=== PATIENT | male | born 1970 | race Caucasian/White ===

== ENCOUNTER 2016-10-25 15:12 | Inpatient (IN) ==
[2016-10-25] MEDS ORDERED: ALUM/MAG/SIMETH/LIDO VISC 1:1 30 ML BOTTLE PO STA (15:36)
[2016-10-25] MEDS ORDERED: ASPIRIN 325 MG TABLET PO STA (15:36)
[2016-10-25] MEDS ORDERED: ALUM/MAG/SIMETH/LIDO VISC 1:1 30 ML BOTTLE PO ONE (15:39)
[2016-10-25] MEDS ORDERED: ASPIRIN 325 MG TABLET ONE (15:39)
[2016-10-25] MEDS ORDERED: ONDANSETRON 4 MG/2 ML VIAL ONE (15:53)
[2016-10-25] MEDS ORDERED: ONDANSETRON 4 MG/2 ML VIAL IV STA (15:58)
[2016-10-25] MEDS ORDERED: PANTOPRAZOLE 40 MG VIAL IV STA (16:01)
[2016-10-25] MEDS ORDERED: PANTOPRAZOLE 40 MG VIAL IV ONE (16:02)
[2016-10-25 16:05] LABS: Basophils % 0.3 % (0.0-0.8); Eosinophils % 0.2 % (0.00-10.9); Hematocrit 45.6 VOL% (42.0-52.0); Hemoglobin 15.7 GM/DL (14.0-18.0); Immature Granulocytes % 0.3 %; Immature Granulocytes Absolute 0.02 #; Lymphocytes # 1.9 10*3/uL (1.4-4.0); Lymphocytes % 29.1 % (21.2-54.2); Mean Corpuscular HGB Conc 34.4 GM/DL (32-36); Mean Corpuscular Hemoglobin 29 PG (27-34); Mean Corpuscular Volume 85.1 FL (87-102); Mean Platelet Volume 10.3 FL (9.6-12.0); Monocytes # 0.5 10*3/uL (0.11-0.8); Monocytes % 7.8 % (1.7-12.7); Neutrophils # 4.2 10*3/uL (1.4-7.4); Neutrophils % 62.3 % (38.7-73.9); Platelet Count 208 T/CUMM (130-400); Red Blood Count 5.36 MC/CUMM (3.8-5.5); Red Cell Distribution Width 12.5 % (9.3-17.3); White Blood Count 6.7 T/CUMM (4-12)
--- NOTE | 2016-10-25 16:11 | XRay Report ---
XR chest 2V Date: 10/25/2016 3:36 PM History: Chest pain Comparison: None Technique: PA and lateral chest Findings: The heart is normal in size. The lungs are clear. Unremarkable mediastinum and osseous structures. Impression: No acute cardiopulmonary pathology identified. PROCEDURE INTERPRETED AT [facility] DEPARTMENT OF RADIOLOGY Final Report Signed by: Dr. Daphnie Sigala
[2016-10-25 16:37] LABS: Albumin 4.9 G/DL (3.4-5.0); Bilirubin,Total 0.8 MG/DL (0.2-1.0); Calcium 9.6 MG/DL (8.5-10.1); Magnesium 2.2 MG/DL (1.8-2.4); Potassium 3.9 MMOL/L (3.5-5.1); Total Protein 7.6 G/DL (6.4-8.3)
--- NOTE | 2016-10-25 16:43 | Emergency Department Note ---
Ace Berman Brittany, am scribing for, and in the presence of, Kamari Wood MD 16:34. Nina Berman Charles R, MD, personally performed the services described in this documentation, ascribed by Sandra Bello in my presence, and it is both accurate and complete [id number] . Arrival - Arrival Chief Complaint: Chest Pain Stated Complaint: chest pain ED Nursing Triage Note: CP OFF AND ON FOR PAST WEEK, BURNING TYPE PAIN, -SOB,+ NAUSEA,-DIAPHORESIS. SEEN AT DR FUNG OFFICE AND SENT TO ER DUE TO ABNORMAL EKG Mode of Arrival: Ambulatory Limitations: No Limitations Source: Patient, Family Time Seen by Provider: 10/25/16 16:25 - History of Present Illness HPI Narrative: This is a 45 y/o white male,who presents to the ED with c/o upper gastric/lower chest pain which started 1 week ago. He states the pain is more of a burning type of pain. He states he has tried OCT meds which have not helped. He reports he burps a lot. He reports the pain is worse after eating meals. He denies any SOB. He denies a cholecystectomy or being scoped. Pt has no other complaints/ pain in the ED at this time. Pt has a PMHx of GERD. Pt denies a surgical Hx. Pt has a family medical Hx of heart disease. Pt denies a social Hx. Onset (ago): week(s) (Started 1 week ago) Consistency: constant Severity: moderate Allergies/Adverse Reactions: Allergies Allergy/AdvReac Type Severity Reaction Status Date / Time No Known Allergies Allergy Unverified 10/25/16 15:13 Home Medications: Home Medications Medication Instructions Recorded Confirmed Type No Known Home Medications [No 10/25/16 10/25/16 History Known Home Medications] Review of System - Review of System 12 point system: reviewed and no additional remarkable complaints except as stated - Review of System Cardiovascular: Present: chest pain (Lower chest pain ). Absent: dyspnea on exertion Gastrointestinal: Present: abdominal pain (Upper gastric pain ) Medical,Surgical,& Family Hx - Medical History Gastrointestinal: History of: GERD - Family History Family History: Reports;: Family Heart Disease - Social History Smoking Status: Never smoker Exam Vital Signs: Vital Signs Temperature 98.3 F 10/25/16 15:47 Pulse Rate 62 10/25/16 16:00 Respiratory Rate 18 10/25/16 16:00 Blood Pressure 135/78 10/25/16 16:00 O2 Sat by Pulse Oximetry 99 10/25/16 16:00 - General General appearance: alert, in no apparent distress - Head Head exam: Present: atraumatic, normocephalic, normal inspection - Eye Eye exam: Present: normal appearance, PERRL, EOMI. Absent: nystagmus - ENT ENT exam: Present: normal exam, normal oropharynx, TM's normal bilaterally - Neck Neck exam: Present: normal inspection, full ROM, trachea midline. Absent: tenderness, meningismus, lymphadenopathy, thyromegaly - Chest Chest inspection: Present: normal inspection, symmetric chest wall rise. Absent : tenderness, rash, abscess - Respiratory Respiratory exam: Present: normal lung sounds bilaterally. Absent: rales, respiratory distress, rhonchi, stridor, wheezes - Cardiovascular Cardiovascular exam: Present: regular rate, normal rhythm, normal heart sounds. Absent: murmur, rubs, gallop, clicks - Abdominal Exam Abdominal exam: Present: soft, normal bowel sounds. Absent: distention, tenderness, guarding, rebound, rigidity - Extremities Exam Extremities exam: Present: normal inspection, full ROM, normal capillary refill. Absent: pedal edema, joint swelling, calf tenderness - Back Exam Back exam: Present: normal inspection, full ROM. Absent: tenderness, muscle spasm, rashes - Neurological Exam Neurological exam: Present: alert, oriented X3, CN II-XII intact. Absent: motor sensory deficit - Psychiatric Psychiatric exam: Present: normal affect, normal mood. Absent: depressed, agitated, anxious, manic - Skin Skin exam: Present: warm, dry, intact, normal color. Absent: rash, cyanosis, diaphoresis, erythema, pallor, mottled Course - Consultations Consultation #1: Hospitalist will admit patient Time: 16:55 Results - Labs CBC & BMP: 10/25/16 15:41 10/25/16 15:41 Lab Results: I have reviewed the patients labs - Diagnostic Findings Procedure: Chest x-ray: report reviewed by me (Nothing acute. ) Disposition Clinical Impression: Atypical chest pain, GERD (gastroesophageal reflux disease) Case discussed with: patient, patient's family Disposition: Still a Patient Condition: Stable Time of Disposition: 16:56
--- NOTE | 2016-10-25 18:53 | Hospitalist History & Physical ---
Assessment and Plan (1) Atypical chest pain Status: Acute Assessment and plan: Pt. consistent with GI issues. Will consult GI to see. Cardiac enzymes and EKG to rule out any cardiac issue Current Visit: Yes (2) GERD (gastroesophageal reflux disease) Status: Acute Assessment and plan: GI consult. Pt to be NPO after midnight for any possible interventions. Current Visit: Yes History of Present Illness Chief complaint: chest pain History of present illness: Mr. Lynne is a 45 y/o white male,who presents to the ED with chest pain which started 1 week ago. Pain is described as lower chest, upper gastric. He states the pain is more of a burning and dull type of pain. He first experienced the pain after dinner a week ago when his made lasagna. Since then, the pain has been worse after most meals; limiting his intake over the last couple of days. He reports trying OTC meds which have not helped. He did report relief with drinking milk. He also reports he burps a lot. He denies any SOB, fever, or chills. He states that this has been going on for a while but last week has worsened. He denies ever having any procedures for this issue. Pt has no other complaints/pain in the ED at this time. Only PMHx is GERD. Pt. will be admitted for observation. Pain presents as atypical chest pain; does not appear to be cardiac related but cardiac enzymes and serial enyzmes are to be ordered. GI consulted to evaluate. Home Medications Medication Instructions Recorded Confirmed Type No Known Home Medications [No 10/25/16 10/25/16 History Known Home Medications] Allergies Allergy/AdvReac Type Severity Reaction Status Date / Time No Known Allergies Allergy Unverified 10/25/16 15:13 Medical,Surgical,& Family Hx - Medical History Gastrointestinal: History of: GERD - Family History Family History: Reports;: Family Heart Disease - Social History Smoking Status: Never smoker - Constitutional Constitutional: Absent: fatigue, night sweats, weakness - Cardiovascular Cardiovascular: Present: chest pain with activity (after meals). Absent: edema , radiating jaw, neck or arm pain - Respiratory Respiratory: Present: cough (pt states it is "clear stuff") - Gastrointestinal Gastrointestinal: Present: dysphagia (x 2 days ago after eating a meal). Absent : change in bowel habits, diarrhea - Genitourinary Genitourinary: Absent: dysuria - Musculoskeletal Musculoskeletal: Absent: muscle weakness - Hematologic/Lymphatic Hematologic/Lymphatic: Absent: easy bleeding Exam - Constitutional Vitals: Period Temp Pulse Resp BP Sys/Lerner Pulse Ox Last 24 Hr 55-56 16 118-126/71-84 98 General appearance: normal weight, no acute distress - Head Head exam: Present: normal inspection, normocephalic - Eye Eye exam: Present: EOMI Pupils: Present: DAGMAR - Respiratory Respiratory exam: Present: clear to auscultation bilaterally - GI/Abdominal GI/Abdominal exam: Present: normal bowel sounds, rebound, soft. Absent: tenderness - Extremities Exam Extremities exam: Present: normal inspection, normal capillary refill, full ROM - Neurological Exam Neurological exam: Present: alert, oriented X3, normal gait - Psychiatric Psychiatric exam: Present: normal affect, normal mood - Skin Skin exam: Present: normal color, warm, dry Results - Labs CBC & BMP: 10/25/16 15:41 10/25/16 15:41 Lab Results: I have reviewed the past 24 hour labs - Diagnostic Findings Procedure: Chest x-ray: report reviewed by me (no acute process)
[2016-10-25] MEDS ORDERED: BISACODYL 5 MG TABLET PO PRN (21:43)
[2016-10-25] MEDS ORDERED: DOCUSATE SODIUM 100 MG CAPSULE PO PRN (21:43)
[2016-10-25] MEDS ORDERED: ACETAMINOPHEN 325 MG TABLET PO PRN (21:43)
[2016-10-26 05:11] LABS: Basophils % 0.3 % (0.0-0.8); Eosinophils # 0.1 10*3/uL (0.0-0.87); Eosinophils % 1.3 % (0.00-10.9); Hematocrit 42.9 VOL% (42.0-52.0); Hemoglobin 14.7 GM/DL (14.0-18.0); Immature Granulocytes % 0.3 %; Immature Granulocytes Absolute 0.02 #; Lymphocytes # 2.8 10*3/uL (1.4-4.0); Lymphocytes % 39.7 % (21.2-54.2); Mean Corpuscular HGB Conc 34.3 GM/DL (32-36); Mean Corpuscular Hemoglobin 29 PG (27-34); Mean Corpuscular Volume 84.1 FL (87-102); Mean Platelet Volume 10.9 FL (9.6-12.0); Monocytes # 0.6 10*3/uL (0.11-0.8); Monocytes % 8.7 % (1.7-12.7); Neutrophils # 3.5 10*3/uL (1.4-7.4); Neutrophils % 49.7 % (38.7-73.9); Platelet Count 208 T/CUMM (130-400); Red Cell Distribution Width 12.7 % (9.3-17.3)
[2016-10-26 05:50] LABS: Albumin 4.4 G/DL (3.4-5.0); Bilirubin,Total 1.1 MG/DL (0.2-1.0); Calcium 9.4 MG/DL (8.5-10.1); Potassium 3.8 MMOL/L (3.5-5.1); Total Protein 7.1 G/DL (6.4-8.3)
--- NOTE | 2016-10-26 05:56 | EKG Report ---
Stationary ECG Study [facility] ER Test Date: 10/25/2016 3:18:47 PM Pat Name: JIE WALTER Department: Room: 294 Gender: M Packaging Line Attendant: : 1970 Requested by: Jame Baig Order Number: [id number] Reading MD: MORGAN HURTADO Intervals [place] Rate: 55 P: 35 LA: 190 QRS: -10 QRSD: 118 T: 55 QT: 393 QTc: 383 Interpretive Statements SINUS BRADYCARDIA SEPTAL INFARCT, AGE UNDETERMINED Electronically Signed On 10-27-16 21:34:27 CDT by MORGAN HURTADO [email or web address]
[2016-10-26] MEDS ORDERED: PANTOPRAZOLE 40 MG TABLET PO SCH (09:00)
--- NOTE | 2016-10-26 13:00 | Hospitalist Progress Note ---
Assessment and Plan (1) Atypical chest pain Status: Acute Current Visit: Yes (2) GERD (gastroesophageal reflux disease) Status: Acute Current Visit: Yes Hospitalist: Subjective Interval history: Patient reports that he has had no pain since receiving a GI cocktail in the ED. His chest pain does appear to be related to reflux. Serial troponins and ekgs wnl. GI has been consulted. Exam - Constitutional Vitals: Period Temp Pulse Resp BP Sys/Lerner Pulse Ox Last 24 Hr 97.7 F-98.3 F 47-57 16-20 104-131/32-84 96-98 General appearance: normal weight - Head Head exam: Present: normal inspection, normocephalic - Eye Eye exam: Present: EOMI Pupils: Present: DAGMAR - ENT ENT exam: Present: normal exam - Neck Neck exam: Present: normal inspection - Respiratory Respiratory exam: Present: clear to auscultation bilaterally - Cardiovascular Cardiovascular exam: Present: regular rate and rhythm - GI/Abdominal GI/Abdominal exam: Present: normal bowel sounds, soft. Absent: distended, tenderness, rebound - Extremities Exam Extremities exam: Present: normal inspection - Back Exam Back exam: Present: normal inspection - Neurological Exam Neurological exam: Present: alert, oriented X3 - Psychiatric Psychiatric exam: Present: normal affect, normal mood - Skin Skin exam: Present: warm, intact Results - Labs CBC & BMP: 10/26/16 04:05 10/26/16 04:05
[2016-10-26] MEDS ORDERED: CETIRIZINE 10 MG TABLET PO SCH (13:30)
[2016-10-26 15:54] VITALS: BP 123/66
--- NOTE | 2016-10-26 17:40 | Gastrointestinal Consult Note ---
Assessment and Plan (1) GERD (gastroesophageal reflux disease) Status: Acute Assessment and plan: Recent increased symptoms with atypical chest pain. He has been symptom-free since admission yesterday after GI cocktail and Protonix started. I think he could be discharged today from GI standpoint. Would continue on daily PPI and plan EGD next week given his recent increased symptoms at age 45. He is agreeable to this. We plan to do that next . Current Visit: Yes History of Present Illness Chief complaint: Atypical chest pain, recurrent indigestion History of present illness: Mr. Lynne is a 45 year old male without significant past medical history. He was admitted yesterday after presenting with complaint of increased chest pain off and on for the last couple of days. He has over 10 year history of intermittent indigestion symptoms for which he takes antacids and PPI medication sporadically. Over the last 2 weeks those symptoms have been more persistent and he developed substernal chest pain a few days ago which has occurred off and on since. He was taking Prilosec and Zantac at home without relief. He does note that he has been eating foods with tomato base on a near daily basis over the last week and had started drinking Coke around 2 weeks ago which is unusual for him. He describes some occasional dysphagia to liquids but no difficulty swallowing solids. His weight is stable. He denies gross GI bleeding. There is no family history of GI cancer. Cardiac evaluation here has been negative with normal cardiac enzymes after prolonged chest pain episode for over 2 hours. Home Medications Medication Instructions Recorded Confirmed Type No Known Home Medications [No 10/25/16 10/25/16 History Known Home Medications] Allergies Allergy/AdvReac Type Severity Reaction Status Date / Time No Known Allergies Allergy Unverified 10/25/16 15:13 Medical,Surgical,& Family Hx - Medical History Endocrine: No history of: Adrenal Disease, Diabetes Mellitus (IDDM), Diabetes Mellitus ( NIDDM), Thyroid Disorder, Endocrine Cancer, Endocrine Problems Gastrointestinal: History of: GERD Musculoskeletal: No history of: Amputation - Surgical History Cardiac Surgeries: Patient Denies: Femoral-Popliteal Bypass Graft, Cardiac Catheterization, Cardiac Surgery, Carotid Endarterectomy, Internal Defibrillator, Vascular Access Devices Thoracic Surgeries: Patient denies;: Organ Transplant, Lobectomy Neurologic Surgeries: Patient denies: Neurologic Surgery HEENT Surgeries: Patient denies: Carotid Endarterectomy, Eye Surgery, Thyroid Surgery, Tonsilectomy & Adenoidectomy Abdominal Surgeries: Patient denies: Abdominal Surgery, Splenectomy Reproductive Surgeries: Patient denies;: Genitourinary Surgery Orthopedic Surgeries: Patient denies;: Implanted Devices, Orthopedic Surgery, Spinal Surgery, Total Hip Replacement, Total Knee Replacement - Family History Family History: Reports;: Family Heart Disease - Social History Smoking Status: Never smoker Frequency of Alcohol Use: Rarely - Constitutional Constitutional: Absent: chills, fatigue, fever(s) - EENT Nose, mouth and throat: Present: as per HPI. Absent: epistaxis, headache(s) - Cardiovascular Cardiovascular: Absent: chest pain with activity, orthopnea, palpitations, PND - Respiratory Respiratory: Absent: cough, dyspnea - Gastrointestinal Gastrointestinal: Present: as per HPI, dysphagia. Absent: early satiety, hematemesis, hematochezia, nausea, vomiting - Genitourinary Genitourinary: Absent: dysuria, flank pain, hematuria - Neurological Neurological: Absent: abnormal speech, focal weakness - Hematologic/Lymphatic Hematologic/Lymphatic: Absent: easy bleeding, easy bruising Exam - Constitutional Vitals: Period Temp Pulse Resp BP Sys/Lerner Pulse Ox Last 24 Hr 97.7 F-98.3 F 47-57 16-20 104-131/32-84 96-98 General appearance: no acute distress - Head Head exam: Present: normocephalic, atraumatic - Eye Eye exam: Present: EOMI. Absent: scleral icterus Pupils: Present: normal accommodation - Respiratory Respiratory exam: Present: clear to auscultation bilaterally. Absent: wheezes - Cardiovascular Cardiovascular exam: Present: regular rate and rhythm. Absent: gallop, rubs - GI/Abdominal GI/Abdominal exam: Present: normal bowel sounds, soft. Absent: distended, organomegaly, tenderness - Extremities Exam Extremities exam: Absent: calf tenderness, edema - Neurological Exam Neurological exam: Present: alert, oriented X3, CN II-XII intact. Absent: motor sensory deficit - Psychiatric Psychiatric exam: Present: normal affect, normal mood - Skin Skin exam: Present: warm, dry Results - Labs CBC & BMP: 10/26/16 04:05 10/26/16 04:05 Lab Results: I have reviewed the past 24 hour labs
--- NOTE | 2016-10-26 17:56 | Discharge Summary ---
Hospital Course - Hospital Course Hospital Course: 45 y/o WM admitted with atypical chest pain. Cardiac work-up negative. Pain relieved with GI cocktail. Evaluated by gastroenterology, with plan for outpatient EGD next week. He has now reached maximum benefit of inpatient stay and will be discharged to home. Diagnosis - Discharge Diagnosis (1) Atypical chest pain Status: Resolved (2) GERD (gastroesophageal reflux disease) Status: Chronic Specialty Discharge - Follow Up or Referrals Follow up with: Vasu Moran MD [Physician] - 1 Week Discharge Plan - Discharge Data Condition at Discharge: Stable Discharge Diet: advance to your usual diet Activity: resume usual activities as tolerated Hygiene: no restrictions Weight Bearing at Discharge: full weight bearing Driving: no restrictions Contact your physician if you experience:: fever over 101, Nausea/Vomiting, Shortness of breath - Discharge Medications New Pantoprazole Tab [Protonix Tab] 40 mg PO DAILY #30 tablet - Follow Up or Referral - Forms/Instructions Exam - Constitutional Vitals: Period Temp Pulse Resp BP Sys/Lerner Pulse Ox Last 24 Hr 97.7 F-98.3 F 47-57 16-20 104-131/32-84 96-98 General appearance: over weight - Head Head exam: Present: normocephalic, atraumatic - Eye Eye exam: Present: EOMI Pupils: Present: DAGMAR - ENT ENT exam: Present: normal exam - Neck Neck exam: Present: normal inspection - Respiratory Respiratory exam: Present: clear to auscultation bilaterally. Absent: rhonchi, wheezes - Cardiovascular Cardiovascular exam: Present: regular rate and rhythm - GI/Abdominal GI/Abdominal exam: Present: normal bowel sounds, soft. Absent: tenderness, rebound - Extremities Exam Extremities exam: Present: normal inspection - Back Exam Back exam: Present: normal inspection - Neurological Exam Neurological exam: Present: alert, oriented X3 - Psychiatric Psychiatric exam: Present: normal affect, normal mood - Skin Skin exam: Present: warm, intact Discharge Results Labs on day of discharge: Labs from last 24 hours 10/26/16 10/26/16 10/25/16 04:05 04:05 21:15 WBC 7.0 RBC 5.10 Hgb 14.7 Hct 42.9 MCV 84.1 L MCH 29 MCHC 34.3 RDW 12.7 Plt Count 208 MPV 10.9 Neut % (Auto) 49.7 Lymph % (Auto) 39.7 Orange % (Auto) 8.7 Eos % (Auto) 1.3 Baso % (Auto) 0.3 Neut # (Auto) 3.5 Lymph # (Auto) 2.8 Orange # (Auto) 0.6 Eos # (Auto) 0.1 Baso # (Auto) 0.0 Immature Gran % 0.3 Nucleated RBC % 0.0 Immature Gran # 0.02 Nucleated RBCs # 0.00 Sodium 143 Potassium 3.8 Chloride 107 Carbon Dioxide 24 Anion Gap 15.8 H BUN 20 H Creatinine 1.10 GFR Calculation 95 BUN/Creatinine Ratio 18.00 Glucose 100 Calculated Osmolality 287.0 Calcium 9.4 Total Bilirubin 1.10 H AST 18 ALT 47 Alkaline Phosphatase 42 L Troponin I < 0.015 Total Protein 7.1 Albumin 4.4 Globulin 2.7 Albumin/Globulin Ratio 1.6 10/25/16 19:02 WBC RBC Hgb Hct MCV MCH MCHC RDW Plt Count MPV Neut % (Auto) Lymph % (Auto) Orange % (Auto) Eos % (Auto) Baso % (Auto) Neut # (Auto) Lymph # (Auto) Orange # (Auto) Eos # (Auto) Baso # (Auto) Immature Gran % Nucleated RBC % Immature Gran # Nucleated RBCs # Sodium Potassium Chloride Carbon Dioxide Anion Gap BUN Creatinine GFR Calculation BUN/Creatinine Ratio Glucose Calculated Osmolality Calcium Total Bilirubin AST ALT Alkaline Phosphatase Troponin I < 0.015 Total Protein Albumin Globulin Albumin/Globulin Ratio DS: Provider Date of admission: 10/25/16 17:46 Primary care physician: . No PCP Attending physician on admission: Jeffrey Jacobsen MD Consults: 10/25/16 21:43 Consult to Physician [CONS] Routine Comment: Consulting Provider: Vasu Moran Consult to Specialist Group: Gastroenterology Person Notified: Fidelina Date Notified: 10/26/16 Time Notified: 08:36 Discharging clinician: Jeffrey Jacobsen MD
== END 2016-10-26 18:44 | disposition home or self-care (01) | DRG 392 ==
LOC: N.ED 15:12 → N.EDINP 17:46 → N.TELEN 18:23
PROVIDERS: ADMIT Internal Medicine; ATTEND Internal Medicine

== ENCOUNTER 2021-09-01 12:02 | Inpatient (IN) ==
[2021-09-01 15:51] LABS: Basophils % 0.2 % (0.0-0.8); Eosinophils % 0.2 % (0.00-10.9); Hematocrit 45.4 VOL% (42.0-52.0); Hemoglobin 15.2 GM/DL (14.0-18.0); Immature Granulocytes % 0.4 %; Immature Granulocytes Absolute 0.05 #; Lymphocytes # 1.5 10*3/uL (1.4-4.0); Lymphocytes % 11.4 % (21.2-54.2); Mean Corpuscular HGB Conc 33.5 GM/DL (32-36); Mean Corpuscular Volume 90.1 FL (87-102); Mean Platelet Volume 11.4 FL (9.6-12.0); Monocytes % 7.9 % (1.7-12.7); Neutrophils % 79.9 % (38.7-73.9); Platelet Count 193 T/CUMM (130-400); Red Blood Count 5.04 MC/CUMM (3.8-5.5); Red Cell Distribution Width 12.6 % (9.3-17.3); White Blood Count 13.3 T/CUMM (4-12)
[2021-09-01] MEDS ORDERED: cefTRIAXone 1,000 MG in SODIUM CHLORIDE 0.9% 100 ML IV STA (16:00)
[2021-09-01] MEDS ORDERED: methylPREDNISolone SOD SUC 125 MG/2 ML VIAL IV STA (16:00)
[2021-09-01 16:16] LABS: Albumin 4.5 G/DL (3.4-5.0); Bilirubin,Total 0.6 MG/DL (0.20-1.00); Calcium 9.2 MG/DL (8.5-10.1); Osmolality,Calculated 281.3 MOS/KG (273-304); Total Protein 7.7 G/DL (6.4-8.2)
[2021-09-01] MEDS ORDERED: clonazePAM 0.5 MG TABLET PO STA (18:01)
[2021-09-01] MEDS ORDERED: hydrALAZINE 20 MG/1 ML VIAL IV PRN (18:21)
[2021-09-01] MEDS ORDERED: ZALEPLON 5 MG CAPSULE PO PRN (18:21)
[2021-09-01] MEDS ORDERED: MORPHINE 2 MG/1 ML SYRINGE IV PRN (18:21)
[2021-09-01] MEDS ORDERED: NICOTINE 21 MG/24 HR PATCH TRANSDERM PRN (18:21)
[2021-09-01] MEDS ORDERED: guaiFENesin/DM ER 600-30 MG TABLET PO PRN (18:21)
[2021-09-01] MEDS ORDERED: GLUCAGON 1 MG VIAL IM PRN (18:21)
[2021-09-01] MEDS ORDERED: DOCUSATE SODIUM 100 MG CAPSULE PO PRN (18:21)
[2021-09-01] MEDS ORDERED: diphenhydrAMINE CAP 25 MG CAPSULE PO PRN (18:21)
[2021-09-01] MEDS ORDERED: ONDANSETRON 4 MG/2 ML VIAL IV PRN (18:21)
[2021-09-01] MEDS ORDERED: DEXTROSE 10% 25 GM/250 ML BAG IV PRN (18:30)
[2021-09-01] MEDS: DEXTROSE 5% NACL 0.9% 1,000 ML IV SCH (21:06)
[2021-09-01] MEDS: ACETAMINOPHEN 325 MG TABLET PO PRN (21:13)
[2021-09-01] MEDS: HEPARIN 5,000 UNIT/1 ML VIAL SUBCUT SCH (22:00)
[2021-09-02 04:58] LABS: Basophils % 0.1 % (0.0-0.8); Hematocrit 41.5 VOL% (42.0-52.0); Hemoglobin 14.1 GM/DL (14.0-18.0); Immature Granulocytes % 0.5 %; Immature Granulocytes Absolute 0.04 #; Lymphocytes # 1.3 10*3/uL (1.4-4.0); Lymphocytes % 14.7 % (21.2-54.2); Mean Corpuscular Volume 88.5 FL (87-102); Mean Platelet Volume 11.3 FL (9.6-12.0); Monocytes % 5.7 % (1.7-12.7); Platelet Count 211 T/CUMM (130-400); Red Blood Count 4.69 MC/CUMM (3.8-5.5); Red Cell Distribution Width 12.4 % (9.3-17.3); White Blood Count 8.6 T/CUMM (4-12)
[2021-09-02 05:25] LABS: Calcium 9.5 MG/DL (8.5-10.1); Osmolality,Calculated 275.8 MOS/KG (273-304); Potassium 3.8 MMOL/L (3.5-5.1)
[2021-09-02] MEDS ORDERED: PANTOPRAZOLE 40 MG TABLET PO SCH (09:00)
[2021-09-02] MEDS: ACETAMINOPHEN 325 MG TABLET PO PRN (09:25)
[2021-09-02] MEDS: HEPARIN 5,000 UNIT/1 ML VIAL SUBCUT SCH (09:26)
[2021-09-02] MEDS: DEXTROSE 5% NACL 0.9% 1,000 ML IV SCH ×2 (09:55→11:42)
[2021-09-02 12:33] VITALS: BP 142/88
== END 2021-09-02 14:50 | disposition home or self-care (01) | DRG 148 ==
LOC: N.ED 12:02 → N.EDINP 18:22 → N.TELES 23:50
PROVIDERS: ADMIT Internal Medicine; ATTEND Internal Medicine